=== PATIENT | female | born 1975 | race Caucasian/White ===

== ENCOUNTER 2018-05-16 16:51 | Inpatient (IN) ==
--- NOTE | 2018-05-16 17:09 | ERNOTE ---
ER Female HPI Date of Service: 05/16/18 Stated Complaint: VAGINAL DISCHARGE, ABD PAIN Time Seen by Provider: 05/16/18 17:09 Source: patient Exam Limitations: no limitations Immunizations: IMMUNIZATION HX Immunizations Up to Date Yes History of Influenza Vaccine No Hx Pneumococcal Vaccination No Allergies/Adverse Reactions: Allergies Sulfa (Sulfonamide Antibiotics) Allergy (Verified 05/16/18 17:02) Home Medications: HOME MEDICATIONS NK 05/16/18 [Last Taken Unknown] Pain Score #1 Pain Score: 5 - History of Present Illness Narrative: The patient is a 42 year old female who presents for vaginal discharge and odor which has been present for 1 month. There are associated symptoms of chills, fever and nausea. The patient reports vaginal pain, 5/10. There are no alleviating factors. There are no aggravating factors. Previous treatments have included: none. The past medical history includes: TSS. The social history is positive for current tobacco use. The patient has had no ill contacts. Patient reports menstruation 1 month ago in which she wears tampons. Patient reports she began having vaginal discharge of brown and presumed pus shortly following completion of cycle. Patient states she has noticed increased discomfort with vaginal intercourse. Patient states 1 week ago her partner noticed increased vaginal odor. Patient reports Sunday began having chills, fever, fatigue and vomiting. Patient reports symptoms similar to TSS which she had 20 years ago. Review of Systems - Review of Systems Constitutional: Present: fever, chills, fatigue EYE: Present: no symptoms reported ENT: Present: ear pain, nasal drainage. Absent: sore throat Respiratory: Present: shortness of breath, cough Cardiology: Absent: chest pain Gastrointestinal/Abdominal: Present: nausea, vomiting, constipation, abdominal pain. Absent: diarrhea Genitourinary: Present: frequency. Absent: dysuria, hematuria Musculoskeletal: Present: back pain Skin: Present: no symptoms reported. Absent: rash Neurological: Present: headache, dizziness/light-headedness Endocrine: Present: no symptoms reported Hematologic/Lymphatic: Present: no symptoms reported Psych: Present: no symptoms reported All Other Systems: All systems neg except as marked Medical History (Last Reviewed 05/16/18 @ 21:14 by RYLIE Hallman) No pertinent past medical history Surgical History: Surgical History (Last Reviewed 05/16/18 @ 21:14 by RYLIE Hallman) No pertinent past surgical history Family History: Family History (Last Reviewed 05/16/18 @ 21:14 by RYLIE Hallman) Other No pertinent family history Social History: Preferred Language Japanese Do you have any druze or No cultural preference? Smoking Status Current every day smoker Alcohol Use none Drug Use none No Social History Section defined Physical Exam - Physical Exam General Appearance: Present: wd/wn, alert, moderate distress Head Exam: Present: normal inspection Eye Exam: Normal inspection: bilateral Neck: Present: normal inspection, nontender Respiratory: Present: no respiratory distress, normal breath sounds, no accessory muscle use, lungs clear Cardiovascular/Chest: Present: no murmur, tachycardia Gastrointestinal/Abdominal: Present: normal bowel sounds, nondistended, soft, no organomegaly, tenderness - RUQ, mild. Absent: guarding, Hayes sign, mass Pelvic Exam: Present: discharge - dark brown and white thick discharge, cervical motion tendernes, tender adnexa, tender uterus Back Exam: Present: CVA tenderness (R), CVA tenderness (L) Neurological Exam: Present: alert, oriented, normal mood/affect Skin Exam: Present: normal color, warm/dry Progress - Date and Time Seen: Date and Time: 05/16/18 18:58 No retained foreign body noted on vaginal exam. 05/16/18 20:50 Message left for to discuss admission for pyelonephritis and sepsis. 05/16/18 21:05 Again attempt to contact without answer. 05/16/18 21:12 Discussed case with . Will admit acute for sepsis, pyelonephritis and BV. Will administer Flagyl po since patient tolerating oral and does not want initation of other antibiotics at this time for pyelonephritis. Will continue hydration IV due to sepsis. - Results and Orders Patient's Lab Results:: I have reviewed the patient's lab results. - Vital Signs Patient's Vital Signs:: I have reviewed the patient's vital signs. Vital Signs: Vital Signs 05/16/18 16:57 Temperature 36.0 C Pulse Rate 130 H Respiratory Rate 20 Blood Pressure 122/71 O2 Sat by Pulse Oximetry 100 - CT/Ultrasound CT/Ultrasound Narrative: X-RAY REPORT ~[id number] CT/CT Abdomen/Pelvis W/C *~ Exam Date: 05/16/2018 20:21 Ordering Physician: Lashonda Francis [facility] CT Abdomen/Pelvis W/C * INDICATION: vaginal discharge, abdominal pain. Additional technologist comments: Abdominal pain, nausea and vomiting since Sunday. TECHNIQUE: CT of the abdomen and pelvis with Isovue-370 IV contrast including delayed images. Coronal reformatted images were performed. Oral contrast was administered. Individualized dose optimization technique was used for the performed procedure including automated exposure control, adjustment of the mA and/or kV according to patient size and/or the iterative reconstruction technique. COMPARISON: None. FINDINGS: No free air or fluid collection. Lower chest: The visualized lower lungs are aerated. No pleural or pericardial effusion. ABDOMEN: Liver: Hepatomegaly measures 20.2 cm craniocaudal. Diffuse hepatic steatosis. Gallbladder and biliary: Normal gallbladder without radiopaque stone. Normal caliber bile ducts. Spleen: Normal spleen. Pancreas: The pancreas enhances homogeneously without focal mass, ductal dilation, or peripancreatic inflammatory changes. Adrenal glands: Normal adrenal glands. Kidneys and ureters: There are multiple peripheral wedge-shaped hypodensities throughout the right kidney seen on both the portal venous and delayed phases suggestive of pyelonephritis. On the delayed phase, on the left, there is some subtle areas of questionable peripheral hypoenhancement which may also represent pyelonephritis. Both kidneys excrete contrast normally. There is a small left renal cyst. There is right perinephric inflammatory changes with a small amount of fluid in the right paracolic gutter. GI tract: The stomach is decompressed and poorly evaluated. Small bowel and colon are of normal caliber. The appendix is not definitely visualized. Vascular structures: Normal caliber abdominal aorta. The celiac artery, SMA, bilateral renal arteries, and ELIJAH are patent. Portal and mesenteric venous structures are patent. Lymph nodes: No lymphadenopathy in the abdomen or pelvis. PELVIS: Genitourinary system: Normal bladder. There is a 3.3 cm left ovarian cyst. The uterus appears normal. SKELETAL STRUCTURES AND SOFT TISSUES: Small fat-containing umbilical hernia. No fracture or destructive lesions in the visualized skeleton. IMPRESSION: 1. Multiple peripheral wedge-shaped areas of hypoenhancement in the right kidney suggestive of pyelonephritis. There are subtle areas of questionable hypoenhancement in the left kidney which may also relate to pyelonephritis. There is perinephric inflammatory changes surrounding the right kidney with a small amount of fluid in the right paracolic gutter. Other differential possibilities would include renal infarcts or underlying neoplasm such as lymphoma, however these are considered less likely. Recommend clinical correlation. 2. Left ovarian cyst. 3. Hepatomegaly. Diffuse hepatic steatosis. Electronically signed by Carmen Miller D.O.. - Progress/Reassessment Chief Complaint: Genitourinary Problem Departure Clinical Impression: Pyelonephritis, Bacterial vaginosis Sepsis Qualifiers: Sepsis type: sepsis due to unspecified organism Qualified Code(s): A41.9 - Sepsis, unspecified organism - Departure Disposition: Still a patient Condition: Fair
[2018-05-16] MEDS ORDERED: NORMAL SALINE 1,000 ML IV ONE ×2 (17:12→18:00)
[2018-05-16 17:29] LABS: Urine Bilirubin 1 mg/dl (NEGATIVE); Urine Blood 250 /ul (NEGATIVE); Urine Ketone Negative (NEGATIVE); Urine Protein 100 mg/dL (NEGATIVE); Urine Urobilinogen 4 EU/dl (NORMAL)
[2018-05-16 17:35] LABS: Hematocrit 41.2 % (37.0-47.0); Hemoglobin 14.3 gm/dL (12.5-16.0); Mean Cell Volume 85.8 fl (78-100); Mean Corpuscular Hemoglobin 29.8 pg (27-31); Mean Corpuscular Hgb Conc 34.7 g/dl (32-36); Mean Platelet Volume 10.4 fl (8-12.5); Neutrophil # 14.8 K/mm3 (1.3-6.0); Neutrophil % 81.3 % (42-75.0); Platelet Count 259 K/mm3 (150-450); Red Cell Distribution Width 13.4 % (11.5-14.0); White Blood Count 18.3 K/mm3 (4.0-10.5)
[2018-05-16 17:39] LABS: Total Cells Counted 100
[2018-05-16 17:47] LABS: Albumin * 2.9 gm/dl (3.4-5.0); Anion Gap 16.9 mmol/L (6.8-13.8); BUN/Creatinine Ratio 9.4 (9.0-21.6); Bilirubin, Total 0.7 mg/dL (0.0-1.1); Ca. Corrected For Albumin 9.3 mg/dL (8.4-10.2); Calcium * 8.7 mg/dL (7.9-10.9); Carbon Dioxide 26.1 mmol/L (24-32.6); Total Protein 7.6 gm/dL (6.2-8.2)
[2018-05-16 17:56] LABS: Urine Nitrite Positive (NEGATIVE)
[2018-05-16 17:57] LABS: Urine Appearance Turbid (CLEAR); Urine Color Amber
[2018-05-16 17:58] LABS: Urine Bacteria 2+
[2018-05-16] MEDS ORDERED: DIATRIZOATE MEGLUMINE, SODIUM 30 ML BTL PO ONE (18:00)
[2018-05-16 18:13] LABS: Atypical (Reactive) Lymph 5 % (0-2); Band 2 % (0-2.0); Lymphocyte 2 % (20-51); Monocyte 8 % (0-9); Neutrophil 83 % (42-75); Neutrophil # 15.2 K/mm3 (1.3-6.0)
[2018-05-16 18:14] LABS: Microcytosis 1+; Platelet Estimate Normal (NORMAL); Tear Drop Cells 1+
[2018-05-16 18:15] LABS: Ovalocytes 1+
[2018-05-16] MEDS ORDERED: ONDANSETRON HCL/PF 2 MG/ML VIAL ONE (18:16)
[2018-05-16] MEDS ORDERED: ONDANSETRON HCL/PF 2 MG/ML VIAL IV ONE (18:16)
[2018-05-16] MEDS ORDERED: VANCOMYCIN HCL 1 GM in DEXTROSE 5 % IN WATER 250 ML IV ONE ×2 (18:16)
[2018-05-16 18:55] LABS: Amylase * 22 U/L (25-115); Lipase 62 U/L (73-393)
[2018-05-16] MEDS ORDERED: hydrOXYzine HCL 50 MG/ML VIAL IM ONE ×2 (19:10)
[2018-05-16] MEDS ORDERED: ACETAMINOPHEN 500 MG TABLET ONE (20:21)
[2018-05-16] MEDS ORDERED: ACETAMINOPHEN 500 MG TABLET PO ONE (20:21)
[2018-05-16] MEDS ORDERED: metroNIDAZOLE 500 MG TABLET PO ONE (21:11)
[2018-05-17] MEDS: NORMAL SALINE 1,000 ML IV PRN ×3 (00:08→17:42)
[2018-05-17] MEDS: MEROPENEM 1 GM in NORMAL SALINE 100 ML IV SCH ×2 (00:16→08:36)
[2018-05-17] MEDS: ONDANSETRON HCL/PF 2 MG/ML VIAL IV PRN ×2 (03:15→18:00)
--- NOTE | 2018-05-17 12:48 | HP ---
Chief Complaint - Chief Complaint Date of Service: 05/17/18 Time of Service: 12:48 Chief Complaint: Nausea, chills, fever, bilateral flank pain History of Present Illness: 42-year-old female with past medical history with no significant past medical history presents to the emergency room with complaints of vaginal discharge for the past 1 month she states that several weeks ago obtained a new sexual partner and began experiencing burning with urination that self resolved. She did not seek medical care at that time. 5 days ago she began experiencing nausea, chills, fever and bilateral flank pain. She also noted increased vaginal discharge. The emergency room she was found to have tachycardia in the 130s, CT abdomen and pelvis showed multiple peripheral wedge-shaped areas in the right kidney suggestive of pyelonephritis with subtle areas in the left kidney which may also be related to pyelonephritis. She was found to be to have a WBC of 18.3 lactic acid of 2.1 and abnormal LFTs. She was admitted for treatment of pyelonephritis and started on vancomycin and meropenem. Medical History (Last Reviewed 05/16/18 @ 23:20 by Alannah Mcgarry RN) No pertinent past medical history Surgical History: Surgical History (Last Updated 05/16/18 @ 23:20 by Alannah Mcgarry RN) H/O tubal ligation Family History: Family History (Last Updated 05/16/18 @ 23:21 by Alannah Mcgarry RN) Other Adopted No pertinent family history Social History: Patient Lives/Resources Home Utilized Occupation unemployed Preferred Language [place] Do you have any protestant or No cultural preference? Smoking Status Current every day smoker Have you smoked in the past 12 Yes months Alcohol Use none Drug Use none No Social History Section defined Review Of Systems (GEN) - Review of Systems Generalized/Overall Review: Present: Fever Respiratory: Absent: Shortness of Breath Cardiac: Absent: Chest Pain Abdominal: Present: Nausea. Absent: Vomiting Genitourinary: Absent: Burning Musculoskeletal: Present: Other - Bilateral flank pain Misc: All systems neg except as marked Immunizations: IMMUNIZATION HX Immunizations Up to Date Yes History of Influenza Vaccine No Hx Pneumococcal Vaccination No Allergies/Adverse Reactions: Allergies Allergy/AdvReac Type Severity Reaction Status Date / Time Sulfa (Sulfonamide Allergy Rash Verified 05/16/18 23:21 Antibiotics) Home Medications: HOME MEDICATIONS NK 05/16/18 [Last Taken Unknown] Exam - Exam Vital Signs: Vital Signs - Last Taken Temp 37.5 C 05/17/18 08:51 Pulse 102 H 05/17/18 08:51 Resp 18 05/17/18 08:51 BP 119/66 05/17/18 08:51 Pulse Ox 98 05/17/18 08:51 Constitutional: Present: Alert, Oriented x3, Cooperative ENT Exam: Present: hearing grossly normal Neck: Present: supple, trachea midline. Absent: lymphadenopathy (R), lymphadenopathy (L) Back Exam: Present: CVA tenderness (R) Respiratory: Present: lungs clear. Absent: no accessory muscle use, crackles, rhonchi, wheezing Cardiovascular/Chest: Present: normal peripheral pulses, regular rate, rhythm, no edema. Absent: systolic murmur Peripheral Pulses: dorsalis-pedis (R): 2+, dorsalis-pedis (L): 2+ Abdomen: Present: Normal bowel sounds, soft, nontender Extremity: Present: no pedal edema Skin Exam: Present: normal color, warm/dry Diagnostic Studies: Abnormal Lab Results 05/16/18 05/16/18 05/16/18 Range/Units 17:11 17:22 17:27 WBC 18.3 H (4.0-10.5) K/mm3 Immature Gran % (Auto) 0.80 H (0.001-0.429) % Immature Gran # (Auto) 0.15 H (0.000-0.0310) K/mm3 Neutrophils % 81.3 H (42-75.0) % Neutrophils % (Manual) 83 H (42-75) % Lymphocytes % 5.4 L (20-51) % Lymphocytes % (Manual) 2 L (20-51) % Monocytes % 12.1 H (0.0-9) % Neutrophils # 14.8 H (1.3-6.0) K/mm3 Neutrophils # (Manual) 15.2 H (1.3-6.0) K/mm3 Lymphocytes # 0.99 L (1.5-3.5) k/mm3 Lymphocytes # (Manual) 0.4 L (1.5-3.5) k/mm3 Monocytes # 2.2 H (0.0-1.0) k/mm3 Monocytes # (Manual) 1.5 H (0.0-1.0) k/mm3 Atypic/Reactive Lymphs 5 H (0-2) % Potassium (3.4-4.6) mmol/L Chloride (97-106) mmol/L Anion Gap (6.8-13.8) mmol/L Random Glucose (70-110) mg/dL Lactic Acid, Venous (0.4-2.0) mmol/L AST (0-48) U/L ALT (19-67) U/L Alkaline Phosphatase (50-170) U/L Albumin (3.4-5.0) gm/dl Amylase 22 L (25-115) U/L Lipase 62 L (73-393) U/L Procalcitonin (0.05-0.50) ng/mL Urine Protein 100 H (NEGATIVE) mg/dL Urine Glucose (UA) 100 H (NEGATIVE) mg/dL Urine Blood 250 H (NEGATIVE) /ul Urine Nitrate Positive H (NEGATIVE) Urine Bilirubin 1 H (NEGATIVE) mg/dl Prot Sulfosalicylic Acd 4+ H (0) mg/dL Urine Urobilinogen 4 H (NORMAL) EU/dl Ur Leukocyte Esterase 100 H (NEGATIVE) /ul Urine RBC 10-25 H (0-5) /hpf Urine WBC 5-10 H (0-5) /hpf Ur Epithelial Cells 10-25 H (0-5) /hpf Urine Bacteria 2+ H (NONE) 05/16/18 05/16/18 05/16/18 Range/Units 17:27 17:27 18:21 WBC (4.0-10.5) K/mm3 Immature Gran % (Auto) (0.001-0.429) % Immature Gran # (Auto) (0.000-0.0310) K/mm3 Neutrophils % (42-75.0) % Neutrophils % (Manual) (42-75) % Lymphocytes % (20-51) % Lymphocytes % (Manual) (20-51) % Monocytes % (0.0-9) % Neutrophils # (1.3-6.0) K/mm3 Neutrophils # (Manual) (1.3-6.0) K/mm3 Lymphocytes # (1.5-3.5) k/mm3 Lymphocytes # (Manual) (1.5-3.5) k/mm3 Monocytes # (0.0-1.0) k/mm3 Monocytes # (Manual) (0.0-1.0) k/mm3 Atypic/Reactive Lymphs (0-2) % Potassium 3.0 L (3.4-4.6) mmol/L Chloride 93 L (97-106) mmol/L Anion Gap 16.9 H (6.8-13.8) mmol/L Random Glucose 160 H (70-110) mg/dL Lactic Acid, Venous 2.1 H (0.4-2.0) mmol/L AST 249 H (0-48) U/L ALT 210 H (19-67) U/L Alkaline Phosphatase 263 H (50-170) U/L Albumin 2.9 L (3.4-5.0) gm/dl Amylase (25-115) U/L Lipase (73-393) U/L Procalcitonin 0.81 H (0.05-0.50) ng/mL Urine Protein (NEGATIVE) mg/dL Urine Glucose (UA) (NEGATIVE) mg/dL Urine Blood (NEGATIVE) /ul Urine Nitrate (NEGATIVE) Urine Bilirubin (NEGATIVE) mg/dl Prot Sulfosalicylic Acd (0) mg/dL Urine Urobilinogen (NORMAL) EU/dl Ur Leukocyte Esterase (NEGATIVE) /ul Urine RBC (0-5) /hpf Urine WBC (0-5) /hpf Ur Epithelial Cells (0-5) /hpf Urine Bacteria (NONE) Microbiology 05/16/18 18:00 Vaginal/Cervical Culture - Preliminary Vaginal No Growth 05/16/18 17:11 Urine Culture - Preliminary Urine,Clean Catch Gram Negative Bacilli 05/16/18 17:58 Blood Culture - Preliminary Blood Ruling Out Pathogen 05/16/18 18:43 Wet Prep - Final Vaginal Laboratory Results WBC 18.3 K/mm3 (4.0-10.5) H 05/16/18 17:27 RBC 4.80 M/mm3 (4.2-5.4) 05/16/18 17:27 Hgb 14.3 gm/dL (12.5-16.0) 05/16/18 17:27 Hct 41.2 % (37.0-47.0) 05/16/18 17:27 MCV 85.8 fl (78-100) 05/16/18 17:27 MCH 29.8 pg (27-31) 05/16/18 17:27 MCHC 34.7 g/dl (32-36) 05/16/18 17:27 RDW 13.4 % (11.5-14.0) 05/16/18 17:27 Plt Count 259 K/mm3 (150-450) 05/16/18 17:27 MPV 10.4 fl (8-12.5) 05/16/18 17:27 Immature Gran % (Auto) 0.80 % (0.001-0.429) H 05/16/18 17:27 Immature Gran # (Auto) 0.15 K/mm3 (0.000-0.0310) H 05/16/18 17:27 Neutrophils % 81.3 % (42-75.0) H 05/16/18 17:27 Neutrophils % (Manual) 83 % (42-75) H 05/16/18 17:27 Band Neuts % (Manual) 2 % (0-2.0) 05/16/18 17:27 Lymphocytes % 5.4 % (20-51) L 05/16/18 17:27 Lymphocytes % (Manual) 2 % (20-51) L 05/16/18 17:27 Monocytes % 12.1 % (0.0-9) H 05/16/18 17:27 Monocytes % (Manual) 8 % (0-9) 05/16/18 17:27 Eosinophils % 0.1 % (0.0-3.0) 05/16/18 17:27 Basophils % 0.3 % (0.0-1.0) 05/16/18 17:27 Nucleated RBC % 0.0 k/mm3 (0-1) 05/16/18 17:27 Neutrophils # 14.8 K/mm3 (1.3-6.0) H 05/16/18 17:27 Neutrophils # (Manual) 15.2 K/mm3 (1.3-6.0) H 05/16/18 17:27 Lymphocytes # 0.99 k/mm3 (1.5-3.5) L 05/16/18 17:27 Lymphocytes # (Manual) 0.4 k/mm3 (1.5-3.5) L 05/16/18 17:27 Monocytes # 2.2 k/mm3 (0.0-1.0) H 05/16/18 17:27 Monocytes # (Manual) 1.5 k/mm3 (0.0-1.0) H 05/16/18 17:27 Eosinophils # 0.0 k/mm3 (0.0-0.7) 05/16/18 17:27 Absolute Basophils 0.1 k/mm3 (0.0-0.1) 05/16/18 17:27 Atypic/Reactive Lymphs 5 % (0-2) H 05/16/18 17:27 Platelet Estimate Normal (NORMAL) 05/16/18 17:27 Microcytosis 1+ 05/16/18 17:27 Tear Drop Cells 1+ 05/16/18 17:27 Ovalocytes 1+ 05/16/18 17:27 [place] Cells 1+ 05/16/18 17:27 Sodium 133 mmol/L (132-142) 05/16/18 17:27 Plasma Sodium 134 mmol/L (130-142) 05/16/18 17:27 Potassium 3.0 mmol/L (3.4-4.6) L 05/16/18 17:27 Chloride 93 mmol/L (97-106) L 05/16/18 17:27 Carbon Dioxide 26.1 mmol/L (24-32.6) 05/16/18 17:27 Anion Gap 16.9 mmol/L (6.8-13.8) H 05/16/18 17:27 BUN 9 mg/dL (3-23) 05/16/18 17:27 Creatinine 0.96 mg/dL (0.4-1.4) 05/16/18 17:27 Est GFR (Non-Af Amer) 67 mL/min (60-130) 05/16/18 17:27 BUN/Creatinine Ratio 9.4 (9.0-21.6) 05/16/18 17:27 Random Glucose 160 mg/dL (70-110) H 05/16/18 17:27 Lactic Acid, Venous 1.4 mmol/L (0.4-2.0) 05/16/18 20:45 Calcium 8.7 mg/dL (7.9-10.9) 05/16/18 17:27 Calcium Adj for Albumin 9.3 mg/dL (8.4-10.2) 05/16/18 17:27 Total Bilirubin 0.7 mg/dL (0.0-1.1) 05/16/18 17:27 AST 249 U/L (0-48) H 05/16/18 17:27 ALT 210 U/L (19-67) H 05/16/18 17:27 Alkaline Phosphatase 263 U/L (50-170) H 05/16/18 17:27 Total Protein 7.6 gm/dL (6.2-8.2) 05/16/18 17:27 Albumin 2.9 gm/dl (3.4-5.0) L 05/16/18 17:27 Amylase 22 U/L (25-115) L 05/16/18 17:22 Lipase 62 U/L (73-393) L 05/16/18 17:22 Procalcitonin 0.81 ng/mL (0.05-0.50) H 05/16/18 18:21 Serum HCG, Qual Negative (NEGATIVE) 05/16/18 17:48 Urine Color Jovita 05/16/18 17:11 Urine Appearance Turbid (CLEAR) 05/16/18 17:11 Urine pH 6.0 pH (5.0-7.0) 05/16/18 17:11 Ur Specific Joaquin 1.020 SP.GR. (1.005-1.010) 05/16/18 17:11 Urine Protein 100 mg/dL (NEGATIVE) H 05/16/18 17:11 Urine Glucose (UA) 100 mg/dL (NEGATIVE) H 05/16/18 17:11 Urine Ketones Negative mg/dL (NEGATIVE) 05/16/18 17:11 Urine Blood 250 /ul (NEGATIVE) H 05/16/18 17:11 Urine Nitrate Positive (NEGATIVE) H 05/16/18 17:11 Urine Bilirubin 1 mg/dl (NEGATIVE) H 05/16/18 17:11 Urine Ictotest Negative (NEGATIVE) 05/16/18 17:11 Prot Sulfosalicylic Acd 4+ mg/dL (0) H 05/16/18 17:11 Urine Urobilinogen 4 EU/dl (NORMAL) H 05/16/18 17:11 Ur Leukocyte Esterase 100 /ul (NEGATIVE) H 05/16/18 17:11 Urine RBC 10-25 /hpf (0-5) H 05/16/18 17:11 Urine WBC 5-10 /hpf (0-5) H 05/16/18 17:11 Ur Epithelial Cells 10-25 /hpf (0-5) H 05/16/18 17:11 Urine Bacteria 2+ (NONE) H 05/16/18 17:11 Urine Culture Comments Culture to follow 05/16/18 17:11 Assessment/Plan - Narrative Narrative: 42-year-old female with no significant past medical history presents with pyelonephritis. Found to have a gram-negative kevin bacteremia. - Assessment/Plan (1) Bacteremia Assessment: Preliminary blood cultures are growing gram-negative bacilli. She was initially started on meropenem and vancomycin. I will discontinue the meropenem and continue new her on ceftriaxone Problem: Acute (2) Pyelonephritis Assessment: She was started on meropenem on admission. Cultures are now growing gram- negative bacilli. I will transition her to ceftriaxone. Problem: Acute
[2018-05-17] MEDS ORDERED: ACETAMINOPHEN 325 MG TABLET PO PRN (14:12)
[2018-05-17] MEDS ORDERED: POTASSIUM BICARBONATE/CIT AC 25 MEQ TABLET.EFF PO ONE ×2 (17:25→17:26)
[2018-05-17] MEDS: traMADol HCL 50 MG TABLET PO PRN (23:31)
[2018-05-18] MEDS: NORMAL SALINE 1,000 ML IV PRN ×3 (02:11→20:34)
[2018-05-18 06:12] LABS: Hematocrit 35.1 % (37.0-47.0); Hemoglobin 11.7 gm/dL (12.5-16.0); Mean Cell Volume 87.8 fl (78-100); Mean Corpuscular Hemoglobin 29.3 pg (27-31); Mean Corpuscular Hgb Conc 33.3 g/dl (32-36); Mean Platelet Volume 10.2 fl (8-12.5); Platelet Count 265 K/mm3 (150-450); Red Cell Distribution Width 13.8 % (11.5-14.0); White Blood Count 15.6 K/mm3 (4.0-10.5)
[2018-05-18 06:20] LABS: Total Cells Counted 100
[2018-05-18 06:28] LABS: Anion Gap 12.8 mmol/L (6.8-13.8); BUN/Creatinine Ratio 6.5 (9.0-21.6); Bilirubin, Total 0.3 mg/dL (0.0-1.1); Ca. Corrected For Albumin 8.9 mg/dL (8.4-10.2); Calcium * 7.6 mg/dL (7.9-10.9); Carbon Dioxide 28.6 mmol/L (24-32.6); Potassium 3.4 mmol/L (3.4-4.6)
[2018-05-18 07:08] LABS: Atypical (Reactive) Lymph 1 % (0-2); Immature Granulocyte 3 (0-1); Lymphocyte 12 % (20-51); Monocyte 11 % (0-9); Neutrophil 73 % (42-75); Neutrophil # 11.4 K/mm3 (1.3-6.0)
[2018-05-18] MEDS: traMADol HCL 50 MG TABLET PO PRN ×2 (09:08→18:40)
[2018-05-19] MEDS: NORMAL SALINE 1,000 ML IV PRN ×2 (04:38→22:32)
[2018-05-19] MEDS: traMADol HCL 50 MG TABLET PO PRN ×2 (07:42→19:02)
[2018-05-19 11:09] LABS: Hematocrit 32.7 % (37.0-47.0); Hemoglobin 10.8 gm/dL (12.5-16.0); Mean Cell Volume 87.7 fl (78-100); Mean Platelet Volume 10.6 fl (8-12.5); Neutrophil # 6.7 K/mm3 (1.3-6.0); Neutrophil % 61.9 % (42-75.0); Platelet Count 343 K/mm3 (150-450); Red Blood Count 3.73 M/mm3 (4.2-5.4); White Blood Count 10.8 K/mm3 (4.0-10.5)
[2018-05-19 11:18] LABS: Anion Gap 14.9 mmol/L (6.8-13.8); BUN/Creatinine Ratio 16.7 (9.0-21.6); Bilirubin, Total 0.2 mg/dL (0.0-1.1); Ca. Corrected For Albumin 9.3 mg/dL (8.4-10.2); Carbon Dioxide 26.4 mmol/L (24-32.6); Potassium 3.3 mmol/L (3.4-4.6); Total Protein 5.9 gm/dL (6.2-8.2)
[2018-05-19] MEDS ORDERED: IBUPROFEN 800 MG TABLET PO PRN (16:41)
--- NOTE | 2018-05-19 23:27 | PN ---
Subjective - Date and Time Seen Date: 05/18/18 Time: 12:46 Subjective Narrative: Tona is fairly somnolent. She awakens to answer questions but does not wish to talk and falls back asleep. She has no focal concerns and states she is tired. Objective - Vitals Vitals: Last Vital Signs Afebrile, VSS - Abnormal Lab Findings Abnormal Lab Findings: Abnormal Lab Results - Exam Constitutional: Present: Oriented x3, Somnolent ENT Exam: Present: hearing grossly normal Respiratory: Present: lungs clear, normal breath sounds Cardiovascular/Chest: Present: regular rate, rhythm, no murmur Abdomen: Present: Normal bowel sounds, soft, nontender, nondistended Assessment/Plan Plan Narrative: Continue antibiotics and fluids. Awaiting cultures. Bacteria present in blood, does not appear to be a contaminate. Will need atleast 2 weeks of antibiotics and will need IV antibiotics until oral alternative available and patient condition is improved. - Problems/Diagnosis (1) Sepsis Problem: Acute Qualifiers: Sepsis type: sepsis due to unspecified organism Qualified Code(s): A41.9 - Sepsis, unspecified organism (2) Pyelonephritis Problem: Acute
--- NOTE | 2018-05-19 23:28 | PN ---
Subjective - Date and Time Seen Date: 05/19/18 Time: 13:00 Subjective Narrative: Tona reports feeling much better today. No fever, chills, nausea, or vomiting. Objective - Vitals Vitals: Last Vital Signs Temp 36.8 C 05/19/18 15:30 Pulse 84 05/19/18 15:30 Resp 16 05/19/18 15:30 BP 119/75 05/19/18 15:30 Pulse Ox 98 05/19/18 15:30 - Abnormal Lab Findings Abnormal Lab Findings: Abnormal Lab Results 05/19/18 05/19/18 Range/Units 10:41 10:41 WBC 10.8 H D (4.0-10.5) K/mm3 RBC 3.73 L (4.2-5.4) M/mm3 Hgb 10.8 L (12.5-16.0) gm/dL Hct 32.7 L (37.0-47.0) % Immature Gran % (Auto) 4.30 H (0.001-0.429) % Immature Gran # (Auto) 0.46 H (0.000-0.0310) K/mm3 Lymphocytes % 18.7 L (20-51) % Monocytes % 11.3 H (0.0-9) % Neutrophils # 6.7 H (1.3-6.0) K/mm3 Monocytes # 1.2 H (0.0-1.0) k/mm3 Potassium 3.3 L (3.4-4.6) mmol/L Anion Gap 14.9 H (6.8-13.8) mmol/L Random Glucose 112 H (70-110) mg/dL AST 64 H (0-48) U/L ALT 103 H (19-67) U/L Alkaline Phosphatase 226 H (50-170) U/L Total Protein 5.9 L (6.2-8.2) gm/dL Albumin 2.0 L (3.4-5.0) gm/dl - Exam Constitutional: Present: Alert, Oriented x3, Cooperative Respiratory: Present: lungs clear, normal breath sounds Cardiovascular/Chest: Present: regular rate, rhythm, no murmur Abdomen: Present: Normal bowel sounds, soft, nontender, nondistended Skin Exam: Present: normal color, warm/dry, no cyanosis Eye contact: Present: cooperative, good eye contact, normal speech Thoughts: Present: normal thought pattern, no apparent hallucination Assessment/Plan Plan Narrative: Much better today. Will continue antibiotics IV for another 24 hours and then may be discharged to home on oral antibiotics tomorrow as she is doing much better today. - Problems/Diagnosis (1) Sepsis Problem: Acute Qualifiers: Sepsis type: sepsis due to unspecified organism Qualified Code(s): A41.9 - Sepsis, unspecified organism (2) Pyelonephritis Problem: Acute (3) Bacterial vaginosis Problem: Acute
[2018-05-20] MEDS: NORMAL SALINE 1,000 ML IV PRN (06:34)
[2018-05-20] MEDS: traMADol HCL 50 MG TABLET PO PRN (06:38)
[2018-05-20] MEDS ORDERED: CEFUROXIME AXETIL 500 MG TABLET PO SCH (09:15)
--- NOTE | 2018-05-20 11:52 | DS ---
(1) Bacteremia Diagnosis(s): Blood cultures have grown pansensitive E. coli. She is afebrile, feeling better, tolerating diet. Continue with cefuroxime for 7 more doses. Total of 7 days of antibiotic. Problem: Resolved (2) Pyelonephritis Diagnosis(s): Symptoms have improved continue with cefuroxime for 7 more doses. Problem: Acute (3) Leukocytosis Diagnosis(s): Improved, secondary to pyelonephritis with bacteremia. Problem: Acute (4) Elevated LFTs Diagnosis(s): Etiology is unclear she should follow-up with her primary care doctor in order to assess for resolution of this abnormality. Problem: Acute Description of Stay: 42-year-old female with no significant past medical history presents with one- month history of vaginal discharge and dysuria. A few weeks prior she had obtained a new sexual partner and began experiencing symptoms of a urinary tract infection. She states she did not seek medical attention at that time and her symptoms improved on their own. 5 days prior to presentation she began experiencing nausea fever chills and bilateral flank pain. She presented to the emergency department and was found to have a leukocytosis, tachycardia, elevated lactic acid and abnormal LFTs. CT of the abdomen and pelvis showed multiple peripheral wedge-shaped areas in the right kidney and left kidney suggestive of pyelonephritis. She was started on vancomycin and meropenem for pyelonephritis. Blood cultures were positive for Gram-negative rods and her meropenem was discontinued. She was started on ceftriaxone. Final cultures grew pansensitive E. coli. She remained afebrile, with a drop in her white count. Lactic acid normalized. She had no more nausea vomiting and was tolerating her diet well. She has been transitioned to oral cefuroxime and will require 3 more days of antibiotics. She should follow-up with her primary care physician within 1 week of discharge. Procedures Performed: none Results and Findings: Pending Mircobiology Results 05/16/18 17:22 Blood Blood Culture - Preliminary NO GROWTH AFTER 48 HOURS Lab Pending Results 05/16/18 17:11: Urine Color Jovita, Urine Appearance Turbid, Urine pH 6.0, Ur Specific [place] 1.020, Urine Protein 100 H, Urine Glucose (UA) 100 H, Urine Ketones Negative, Urine Blood 250 H, Urine Nitrate Positive H, Urine Bilirubin 1 H, Urine Ictotest Negative, Prot Sulfosalicylic Acd 4+ H, Urine Urobilinogen 4 H, Ur Leukocyte Esterase 100 H, Urine RBC 10-25 H, Urine WBC 5-10 H, Ur Epithelial Cells 10-25 H, Urine Bacteria 2+ H, Urine Culture Comments Culture to follow 05/16/18 17:22: Amylase 22 L, Lipase 62 L 05/16/18 17:27: WBC 18.3 H, RBC 4.80, Hgb 14.3, Hct 41.2, MCV 85.8, MCH 29.8, MCHC 34.7, RDW 13.4, Plt Count 259, MPV 10.4, Immature Gran % (Auto) 0.80 H, Immature Gran # (Auto) 0.15 H, Neutrophils % 81.3 H, Neutrophils % (Manual) 83 H, Band Neuts % (Manual) 2, Lymphocytes % 5.4 L, Lymphocytes % (Manual) 2 L, Monocytes % 12.1 H, Monocytes % (Manual) 8, Eosinophils % 0.1, Basophils % 0.3, Nucleated RBC % 0.0, Neutrophils # 14.8 H, Neutrophils # (Manual) 15.2 H, Lymphocytes # 0.99 L, Lymphocytes # (Manual) 0.4 L, Monocytes # 2.2 H, Monocytes # (Manual) 1.5 H, Eosinophils # 0.0, Absolute Basophils 0.1, Atypic/Reactive Lymphs 5 H, Platelet Estimate Normal, Microcytosis 1+, Tear Drop Cells 1+, Ovalocytes 1+, [place] Cells 1+ 05/16/18 17:27: Sodium 133, Plasma Sodium 134, Potassium 3.0 L, Chloride 93 L, Carbon Dioxide 26.1, Anion Gap 16.9 H, BUN 9, Creatinine 0.96, Est GFR (Non-Af Amer) 67, BUN/Creatinine Ratio 9.4, Random Glucose 160 H, Calcium 8.7, Calcium Adj for Albumin 9.3, Total Bilirubin 0.7, AST 249 H, ALT 210 H, Alkaline Phosphatase 263 H, Total Protein 7.6, Albumin 2.9 L 05/16/18 17:27: Lactic Acid, Venous 2.1 H 05/16/18 17:48: Serum HCG, Qual Negative 05/16/18 18:00: C.trachomatis RNA (TMA) Not detected, Chlamydia/GC Comment See note, N.gonorrhoeae RNA (TMA) Not detected 05/16/18 18:21: Procalcitonin 0.81 H 05/16/18 20:45: Lactic Acid, Venous 1.4 05/18/18 06:05: WBC 15.6 H, RBC 4.00 L, Hgb 11.7 L, Hct 35.1 L, MCV 87.8, MCH 29.3, MCHC 33.3, RDW 13.8, Plt Count 265, MPV 10.2, Neutrophils % (Manual) 73, Lymphocytes % (Manual) 12 L, Monocytes % (Manual) 11 H, Immature Granulocytes 3 H, Neutrophils # (Manual) 11.4 H, Lymphocytes # (Manual) 1.9, Monocytes # (Manual) 1.7 H, Atypic/Reactive Lymphs 1 05/18/18 06:05: Sodium 139, Plasma Sodium 139, Potassium 3.4, Chloride 101, Carbon Dioxide 28.6, Anion Gap 12.8, BUN 6, Creatinine 0.93, Est GFR (Non-Af Amer) 70, BUN/Creatinine Ratio 6.5 L, Random Glucose 106 D, Calcium 7.6 L, Calcium Adj for Albumin 8.9, Total Bilirubin 0.3, AST 56 H, ALT 113 H, Alkaline Phosphatase 206 H, Total Protein 6.0 L, Albumin 2.0 L 05/19/18 10:41: WBC 10.8 H D, RBC 3.73 L, Hgb 10.8 L, Hct 32.7 L, MCV 87.7, MCH 29.0, MCHC 33.0, RDW 14.0, Plt Count 343, MPV 10.6, Immature Gran % (Auto) 4.30 H, Immature Gran # (Auto) 0.46 H, Neutrophils % 61.9, Lymphocytes % 18.7 L, Monocytes % 11.3 H, Eosinophils % 2.9, Basophils % 0.9, Nucleated RBC % 0.0, Neutrophils # 6.7 H, Lymphocytes # 2.01, Monocytes # 1.2 H, Eosinophils # 0.3, Absolute Basophils 0.1 05/19/18 10:41: Sodium 141, Plasma Sodium 141, Potassium 3.3 L, Chloride 103, Carbon Dioxide 26.4, Anion Gap 14.9 H, BUN 11 D, Creatinine 0.66, Est GFR (Non- Af Amer) 104 D, BUN/Creatinine Ratio 16.7, Random Glucose 112 H, Calcium 8.0, Calcium Adj for Albumin 9.3, Total Bilirubin 0.2, AST 64 H, ALT 103 H, Alkaline Phosphatase 226 H, Total Protein 5.9 L, Albumin 2.0 L Discharge Location: Home Disposition: Home self-care Condition: Stable Discharge Activity: Activity as tolerated Discharge Diet: General/regular food Prescriptions (Any new or edited meds): Cefuroxime Axetil [Ceftin] 500 mg PO Q12H #7 tablet Complete Home Medications List: Complete Home Medication List: Cefuroxime Axetil [Ceftin] 500 mg PO Q12H #7 tablet 05/20/18
[2018-05-20 14:56] VITALS: BP 126/83
== END 2018-05-20 15:21 | disposition home or self-care (01) | DRG 872 ==
LOC: ER 16:51 → MS 21:12
PROVIDERS: ADMIT Internal Medicine; ATTEND Internal Medicine
CPT/HCPCS: 36415; 74177; 80053; 81001; 82150; 83605; 83690; 84145; 84703; 85007; 85025; 87040; 87070; 87077; 87086; 87186; 87210; 87491; 87591; 96361; 96365; 96366; 96372; 96375; 99285; J2405